=== PATIENT | male | born 1975 | race Caucasian/White ===

== ENCOUNTER → 2016-12-17 | Outpatient (CLI) | payer OTHER | LOC: M OUTALCOH 08:57 | PROVIDERS: ATTEND Psychiatry & Neurology Psychiatry | DX: F10.10 Alcohol abuse, uncomplicated (principal) ==

== ENCOUNTER 2016-12-30 11:08 | Outpatient (RCR) | payer OTHER | END 2017-01-03 | LOC: M OUTALCOH 11:08 | PROVIDERS: ATTEND Psychiatry & Neurology Psychiatry | DX: F10.10 Alcohol abuse, uncomplicated (principal) ==

== ENCOUNTER 2018-07-13 18:16 | Emergency (ER) | payer OTHER ==
[~2018-07-13] VITALS: Ht 182.9 cm; Wt 123.9 kg
[2018-07-13 18:17] VITALS: BP 137/76
== END 2018-07-13 19:28 | disposition home or self-care (01) ==
LOC: M ED 18:16
DX: T17.208A Unspecified foreign body in pharynx causing other injury, initial encounter (principal); Y92.9 Unspecified place or not applicable